=== PATIENT | female | born 1950 | race American Indian/Alaskan Native ===

== ENCOUNTER 2017-03-23 15:06 | Inpatient (IN) | payer MEDICARE ==
[2017-03-23] MEDS ORDERED: DULCOLAX PR PRN (15:36)
[2017-03-23] MEDS ORDERED: TYLENOL PO PRN (15:36)
[2017-03-23] MEDS ORDERED: MILK OF MAGNESIA PO PRN (15:36)
[2017-03-23] MEDS ORDERED: HEPARIN/ 0.45% NACL-25,000 UNIT/500 ML 25,000 UNIT/500 ML BAG IV SCH (18:00)
[2017-03-23 18:10] LABS: Basophils % (Auto) 0.4 % (0.0-1.8); Eosinophils % (Auto) 1.8 % (0.0-4.3); Hematocrit 38.7 % (30.3-42.9); Hemoglobin 12.6 gm/dl (10.1-14.3); Mean Corpuscular HGB Conc 33 % (30-34); Mean Corpuscular Hemoglobin 29 pg (28-32); Mean Corpuscular Volume 91 fl (79-97); Platelet Count 245 K/mm3 (140-440); Red Blood Count 4.27 M/mm3 (3.65-5.03); Red Cell Distribution Width 14.3 % (13.2-15.2)
[2017-03-23 18:20] LABS: INR 1.78 (0.87-1.13)
[2017-03-23 18:23] LABS: Albumin/Globulin Ratio 1.4 %; Bilirubin,Total 0.5 mg/dL (0.1-1.2); Calcium 9.4 mg/dL (8.4-10.2); Chloride 100.5 mmol/L (98-107); Potassium 3.9 mmol/L (3.6-5.0); Total Protein 6.8 g/dL (6.3-8.2)
--- NOTE | 2017-03-23 19:29 | Cat Scan Report ---
FINAL REPORT EXAM: CT ANGIO CHEST HISTORY: PULMONARY EMBOLISM TECHNIQUE: Enhanced CT of the chest at 2.5 mm axial intervals following a pulmonary embolism protocol. Coronal and sagittal imaging were also obtained. Coronal oblique MIP projections were obtained. Contrast: Intravenous contrast given PRIORS: None. FINDINGS: There is no evidence for pulmonary embolism in the main pulmonary artery, right and left pulmonary arteries or their major distributions. However, CT does not exclude distal pulmonary emboli. Otherwise, the lung parenchyma are expanded and clear with no evidence for parenchymal nodules, infiltrates, congestion, or pleural effusion. There is no evidence for mediastinal, hilar, or axillary adenopathy. Cardiovascular structures are within normal limits. No evidence for ventricular chamber enlargement is seen. Images through the lung bases include the upper abdomen which show no abnormalities of the visualized abdominal viscera. Bony structures demonstrate no focal abnormalities. IMPRESSION: No evidence for pulmonary embolism. Negative CT of the chest.
--- NOTE | 2017-03-23 20:26 | Cat Scan Report ---
FINAL REPORT EXAM: CT ABDOMEN PELVIS W CON HISTORY: Acute femoral embolism TECHNIQUE: Standard enhanced CT of the abdomen and pelvis. Delayed imaging was obtained. Coronal and sagittal reconstruction was also performed. Contrast: Intravenous contrast given. PRIORS: None. FINDINGS: Within the abdomen, the liver, spleen, pancreas, gallbladder, adrenal glands, and right kidney are unremarkable. Focal cortical thinning in the mid and lower pole of the left kidney is noted, likely related to scarring. No evidence for retroperitoneal or pelvic lymphadenopathy is seen. The bowel loops have normal caliber. No soft tissue mass, fluid collection, inflammatory change, or free air is seen within the abdomen or pelvis. The appendix is normal. There is an inferior vena cava filter in place located at the L3 level. There is a minimal amount of low-density within the inferior aspect of the filter (sagittal image 80), likely representing thrombus. There is low-density intraluminal thrombus filling the left common femoral vein. This extends proximally approximately 2 cm into the distal left external iliac vein. However, this does not extend more proximally into the left common iliac vein or the inferior vena cava. In fact, the left common iliac vein is small in size measuring 4 mm in diameter. The left common femoral vein is enlarged measuring 1.6 cm in diameter. There are a number of varices identified in the kennedy hepatis region, peripancreatic region, stomach, and in the subcutaneous fat overlying the lower pelvis in midline. Within the pelvis, the bladder is unremarkable. The uterus has been surgically removed. No evidence for mass or lymphadenopathy is seen in the pelvis. Extensive sigmoid diverticulosis is noted without active diverticulitis. There are few other diverticuli noted in the descending colon as well. Images through the upper abdomen include the lung bases which are expanded and clear. Bony structures show moderate degenerative disc narrowing L4-L5 with a subtle, retrolisthesis, grade 1, of L4 on L5. There is also a subtle, grade 1, anterolisthesis of L3 on L4. Facet joint degenerative changes at L3-L4 are noted bilaterally. IMPRESSION: 1. Thrombus present extending in the distal left external iliac vein through the left femoral vein. The left common iliac vein is small in size. 2. Inferior vena cava filter in place with a small amount of low-density thrombus along the caudal aspect of the filter. 3. Extensive varices identified in multiple locations as mentioned above. 4. Focal cortical scarring in the mid lower left kidney. Is 5. Degenerative disc changes at L4-L5 with spondylolisthesis of L3 on L4 and L4 on L5 as noted. 6. Sigmoid diverticulosis without active diverticulitis
[2017-03-24] MEDS ORDERED: NACL 0.9% 500 ML 500 ML IV SCH (10:00)
[2017-03-24] MEDS ORDERED: HEPARIN/NS 5000 UNIT/500ML(CATH LAB) 1,000 ML IR ONE (14:50)
[2017-03-24] MEDS ORDERED: ANCEF/STERILE WATER 2 GM/20 ML 2 GM/20 ML SYRINGE IV ONE (14:51)
[2017-03-24] MEDS ORDERED: XYLOCAINE 2% INFILTRATI ONE (14:51)
[2017-03-24] MEDS ORDERED: NACL 0.9% 500 ML 0 ML ONE (14:51)
[2017-03-24 15:08] LABS: Basophils % (Auto) 0.6 % (0.0-1.8); Eosinophils % (Auto) 1.5 % (0.0-4.3); Hematocrit 37.2 % (30.3-42.9); Hemoglobin 12.1 gm/dl (10.1-14.3); Mean Corpuscular HGB Conc 33 % (30-34); Mean Corpuscular Hemoglobin 29 pg (28-32); Mean Corpuscular Volume 89 fl (79-97); Platelet Count 241 K/mm3 (140-440); Red Blood Count 4.18 M/mm3 (3.65-5.03); Red Cell Distribution Width 14.4 % (13.2-15.2); White Blood Count 4.4 K/mm3 (4.5-11.0)
[2017-03-24] MEDS ORDERED: MORPHINE IV PRN ×2 (15:11)
--- NOTE | 2017-03-24 15:17 | Operative Report ---
Operative Report Operative Report: EXAM: 1. Ultrasound-guided access of the left popliteal vein 2. Venography of the left lower extremity 3. Selection of the left external iliac vein with venography 4. Inability to cross the right common iliac vein 5. Placement under fluoroscopy of a 106 cm x 12 cm EKOS thrombolytic catheter in the left external iliac vein, left common femoral vein, and left superficial femoral vein. DATE: 03/24/17 COORDINATOR VOLUNTEER SERVICES: MYNOR MARTINEZ MD INDICATION: Symptomatic left lower extremity deep venous thrombosis MEDICATIONS: Please see nursing report for full details. CONTRAST: Please see laborer wrecking and salvaging report for full details PROCEDURE: The risks, benefits, and alternatives were discussed with the patient and her ; written informed consent was obtained. The patient's left popliteal region was prepped and draped in a sterile fashion. Under direct ultrasound guidance, the left popliteal vein was accessed with a 21-gauge micropuncture needle. 0.018 inch wire was passed into the vein. The needle was exchanged for transitional dilator. Wires exchange for 0.035 inch wire. Transitional dilator was exchanged for a 6 Moz[place] sheath. The patient was heparinized. Digital subtraction angiography demonstrated patency of the popliteal vein, and most of the superficial femoral vein. There was occlusive thrombus in the left common femoral vein extending partially into the superficial femoral vein and occlusive thrombus in the left external iliac vein. There is numerous collaterals noted compatible with a acute on chronic occlusion. 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 Multiple wires and catheters were used and the left external iliac vein was selected. Digital subtraction angiography was performed in multiple projections. Despite multiple wires and catheters, I could not cross the left common iliac vein occlusion. I then placed a 106 cm x 12 cm EKOS thrombolytic catheter in the left external iliac vein, left common femoral vein, and left superficial femoral vein. This was primed with 4 mg of TPA. Sheath was heparinized with 2000 units of heparin. The thrombolytic catheter was then sterilely secured. This was done with 2-0 Ethilon and multiple Steri-Strips. The patient was transferred to the ICU in stable condition. FINDINGS: Please see procedure note above IMPRESSION: Successful placement of a left lower extremity venous thrombolytic catheter as described above.
--- NOTE | 2017-03-24 15:17 | Post Operative Note ---
Date of procedure: 03/24/17 Pre-op diagnosis: LLE symptomatic ileofemoral DVT Post-op diagnosis: same Procedure: 1. Ultrasound guided access of the left popliteal vein 2. Venography of the left lower extremity 3. 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 Fluoroscopic guided placement of a 106 cm x 12 cm tPA infusion catheter from the left external iliac vein across the left common femoral vein to the left superficial femoral vein. Anesthesia: local (w/ conscious sedation) Surgeon: MYNOR MARTINEZ Estimated blood loss: minimal Condition: stable Disposition: ICU
[2017-03-24 15:21] LABS: INR 1.34 (0.87-1.13); Partial Thromboplastin Time 32.6 Sec. (24.2-36.6)
[2017-03-24] MEDS: SUBLIMAZE ONE ×2 (15:27→15:34)
[2017-03-24] MEDS: VERSED ONE ×2 (15:27→15:34)
[2017-03-24] MEDS ORDERED: HEPARIN/NS 5000 UNIT/500ML(CATH LAB) 500 ML IR ONE (15:31)
[2017-03-24] MEDS ORDERED: NACL 0.9% 50 ML ONE (15:31)
[2017-03-24] MEDS ORDERED: CATHFLO ONE ×2 (15:33→16:11)
[2017-03-24] MEDS ORDERED: WATER FOR INJ (PF) 10 ML ONE ×2 (15:35→15:44)
[2017-03-24] MEDS: HEPARIN 10,000 UNITS/10 ML ONE ×2 (15:39→16:15)
[2017-03-24] MEDS ORDERED: HEPARIN/ 0.45% NACL-25,000 UNIT/500 ML 25,000 UNIT/500 ML BAG SHEATH SCH (16:00)
[2017-03-24] MEDS ORDERED: NACL 0.9% 1000 ML 1,000 ML SHEATH SCH (16:00)
[2017-03-24] MEDS ORDERED: NACL 0.9% 1000 ML 1,000 ML EKOSCLUMEN SCH (16:00)
[2017-03-24] MEDS ORDERED: CATHFLO 20 MG in NACL 0.9% 500 ML 500 ML EKOSDLUMEN SCH (16:00)
[2017-03-24] MEDS ORDERED: NACL 0.9% 1000 ML 1,000 ML IV SCH (16:00)
[2017-03-24] MEDS ORDERED: NACL 0.9% 1000 ML 1,000 ML ONE (16:22)
[2017-03-24] MEDS ORDERED: HEPARIN/ 0.45% NACL-25,000 UNIT/500 ML 25,000 UNIT/500 ML BAG ONE (16:22)
[2017-03-24 16:41] LABS: Calcium 9.3 mg/dL (8.4-10.2); Chloride 100.2 mmol/L (98-107); Potassium 4.1 mmol/L (3.6-5.0)
[2017-03-24] MEDS ORDERED: MORPHINE ONE (19:59)
--- NOTE | 2017-03-24 19:59 | History and Physical Report ---
History of Present Illness Date of admission: 03/23/17 16:53 Chief complaint: Left leg DVT History of present illness: 66 YO Female with HTN, PVD, LLE DVT consult placed at the request of Dr. Mahoney for medical management. No reports of fever, chills, CP, Palpitations, NVD, Syncope, skin rash or recent ill contacts. Pt taken to labor and employment paralegal for ekos therapy as per primary team. Past History Past Medical History: hypertension Past Surgical History: Other (EKOS) Social history: Family history: hypertension Medications and Allergies Allergies Allergy/AdvReac Type Severity Reaction Status Date / Time chocolate flavor Allergy Unknown Verified 03/24/17 08:58 orange juice Allergy Unknown Verified 03/24/17 08:58 Home Medications Medication Instructions Recorded Confirmed Last Taken Type Hydrochlorothiazide [HCTZ] 25 mg PO QDAY 03/23/17 03/23/17 03/22/17 23:00 History Lisinopril [Zestril] 10 mg PO DAILY 03/23/17 03/25/17 03/22/17 23:00 History 10 mg Rivaroxaban [Xarelto] 15 mg PO BID 03/23/17 03/25/17 03/22/17 23:00 History 15 mg Active Meds: Active Medications Acetaminophen (Tylenol) 650 mg PO Q4H PRN PRN Reason: Pain MILD(1-3)/Fever >100.5/HILL Acetaminophen/Hydrocodone Bitart ([place] 5/325) 2 each PO Q6H PRN PRN Reason: Pain, Moderate (4-6) Bisacodyl (Dulcolax) 10 mg MI QDAY PRN PRN Reason: Constipation unrelieved by MOM Hydrochlorothiazide (Hctz) 25 mg PO QDAY MITA Sodium Chloride (Nacl 0.9% 500 Ml) 500 mls @ 50 mls/hr IV DIRECT MITA Last Admin: 03/24/17 13:05 Dose: 50 mls/hr Alteplase, Recombinant 20 mg/ (Sodium Chloride) 500 mls @ 15 mls/hr EKOSDLUMEN DIRECT MITA Last Admin: 03/24/17 16:45 Dose: 15 mls/hr Heparin Sodium/Sodium Chloride (Heparin/ 0.45% Nacl-25,000 Unit/500 Ml) 25,000 unit in 500 mls @ 10 mls/hr SHEATH DIRECT MITA; 500 UNITS/HR PRN Reason: Protocol Last Admin: 03/24/17 16:56 Dose: 500 units/hr, 10 mls/hr Sodium Chloride (Nacl 0.9% 1000 Ml) 1,000 mls @ 30 mls/hr IV DIRECT MITA Sodium Chloride (Nacl 0.9% 1000 Ml) 1,000 mls @ 35 mls/hr EKOSCLUMEN DIRECT MITA Last Admin: 03/24/17 17:03 Dose: 35 mls/hr Sodium Chloride (Nacl 0.9% 1000 Ml) 1,000 mls @ 30 mls/hr SHEATH DIRECT MITA Lisinopril (Zestril) 10 mg PO QDAY MITA Magnesium Hydroxide (Milk Of Magnesia) 30 ml PO Q4H PRN PRN Reason: Constipation Morphine Sulfate (Morphine) 2 mg IV Q4H PRN PRN Reason: Pain, Moderate (4-6) Morphine Sulfate (Morphine) 4 mg IV Q4H PRN PRN Reason: Pain , Severe (7-10) Ondansetron HCl (Zofran) 4 mg IV Q8H PRN PRN Reason: Nausea Review of Systems Constitutional: no weight loss, no fever Ears, nose, mouth and throat: no ear pain, no ear discharge, no tinnitis, no decreased hearing, no nose pain, no nasal congestion Breasts: no change in shape, no swelling, no mass Cardiovascular: no chest pain, no orthopnea, no palpitations, no rapid/ irregular heart beat Respiratory: no cough, no cough with sputum, no excessive sputum Gastrointestinal: no abdominal pain, no nausea, no vomiting Genitourinary Female: no pelvic pain, no flank pain, no menorrhagia Rectal: no pain, no incontinence, no bleeding Musculoskeletal: no neck stiffness, no neck pain, no shooting arm pain, no arm numbness/tingling Integumentary: no rash, no pruritis, no redness Neurological: no paralysis, no weakness, no parathesias Psychiatric: no anxiety, no memory loss, no change in sleep habits Endocrine: no cold intolerance, no heat intolerance, no polyphagia, no excessive thirst Hematologic/Lymphatic: no easy bruising, no easy bleeding Allergic/Immunologic: no urticaria, no allergic rhinitis, no wheezing Exam - Constitutional Vitals: Temp Pulse Resp BP Pulse Ox 97.8 F 70 20 100/56 97 03/24/17 16:45 03/24/17 19:15 03/24/17 19:15 03/24/17 19:15 03/24/17 19:15 Results - Labs CBC & Chem 7: 03/25/17 01:16 03/25/17 03:36 Labs: Abnormal lab results 03/24/17 03/24/17 03/24/17 Range/Units 04:02 14:44 14:44 WBC 4.4 L (4.5-11.0) K/mm3 [place] % (Auto) 8.5 H (0.0-7.3) % PT 17.3 H (12.2-14.9) Sec. INR 1.34 H (0.87-1.13) Heparin Anti-Xa Level > 2.00 H (0.3-0.7) U.I./ml Assessment and Plan - Patient Problems (1) HTN (hypertension) Current Visit: Yes Status: Acute Plan to address problem: Monitor bp q shift, Pt currently normotensive, continue ICU monitoring. (2) DVT (deep venous thrombosis) Current Visit: Yes Status: Acute Plan to address problem: S/P EKOS therapy, anticoagulation as per primary team (3) PVD (peripheral vascular disease) Current Visit: Yes Status: Acute Plan to address problem: Continue anticoagulation as per primary team, serial physical exam. (4) DVT prophylaxis Current Visit: Yes Status: Acute
[2017-03-24] MEDS ORDERED: NORCO 5/325 ONE (20:02)
[2017-03-24 20:19] LABS: Basophils % (Auto) 0.6 % (0.0-1.8); Eosinophils % (Auto) 1.3 % (0.0-4.3); Hematocrit 37.6 % (30.3-42.9); Hemoglobin 12.5 gm/dl (10.1-14.3); Mean Corpuscular HGB Conc 33 % (30-34); Mean Corpuscular Hemoglobin 29 pg (28-32); Mean Corpuscular Volume 89 fl (79-97); Platelet Count 234 K/mm3 (140-440); Red Blood Count 4.24 M/mm3 (3.65-5.03); Red Cell Distribution Width 14.4 % (13.2-15.2); White Blood Count 5.9 K/mm3 (4.5-11.0)
[2017-03-24] MEDS: NORCO 5/325 PO PRN (22:36)
[2017-03-25 01:43] LABS: Basophils % (Auto) 0.3 % (0.0-1.8); Eosinophils % (Auto) 0.2 % (0.0-4.3); Hematocrit 37.5 % (30.3-42.9); Hemoglobin 12.4 gm/dl (10.1-14.3); Mean Corpuscular HGB Conc 33 % (30-34); Mean Corpuscular Hemoglobin 29 pg (28-32); Mean Corpuscular Volume 89 fl (79-97); Platelet Count 194 K/mm3 (140-440); Red Blood Count 4.23 M/mm3 (3.65-5.03); Red Cell Distribution Width 14.2 % (13.2-15.2); White Blood Count 9.5 K/mm3 (4.5-11.0)
[2017-03-25 04:08] LABS: Calcium 8.9 mg/dL (8.4-10.2); Chloride 101.6 mmol/L (98-107)
[2017-03-25] MEDS: ZOFRAN IV PRN ×2 (04:15→16:00)
--- NOTE | 2017-03-25 07:18 | Vascular Lab Report ---
Left Lower Extremity Venous Duplex Study: Reason for Exam: Pain and swelling of the left lower extremity. Comments on the Right: A limited duplex study was done of the proximal veins of the right lower extremity. All veins visualized are freely compressible without evidence of internal echogenicity. Flow is spontaneous and phasic throughout. No evidence of acute or chronic thrombus is seen in any of the vessels visualized. Comments on the Left: Deep venous thrombus is noted in the femoral and common femoral veins and extending into the external iliac vein. Superficial thromboses noted in the greater saphenous vein. The remaining veins visualized are freely compressible without evidence of internal echogenicity. Spontaneous and phasic flow is absent proximally. Impression: Deep and superficial venous thrombosis in the left lower extremity
--- NOTE | 2017-03-25 08:32 | Consultation ---
History of Present Illness - Reason for Consult Consult date: 03/25/17 Post-Op management Requesting physician: MYNOR MARTINEZ - History of Present Illness 66 y/o female with chronic LLE DVT, now with symptoms of hypoperfusion, admitted to ICU after EKOS catheter placement. Currently back in cath lab tech now to have EKOS removed. Overnight no issues. Past History Past Medical History: hypertension, other (unable to obtain) Past Surgical History: Other (EKOS on yesterday 03/24/17) Social history: other (unable to obtain) Family history: other (unable to obtain) Medications and Allergies Allergies Allergy/AdvReac Type Severity Reaction Status Date / Time chocolate flavor Allergy Unknown Verified 03/24/17 08:58 orange juice Allergy Unknown Verified 03/24/17 08:58 Home Medications Medication Instructions Recorded Confirmed Last Taken Type Hydrochlorothiazide [HCTZ] 25 mg PO QDAY 03/23/17 03/23/17 03/22/17 23:00 History Lisinopril [Zestril] 10 mg PO DAILY 03/23/17 03/25/17 03/22/17 23:00 History 10 mg Rivaroxaban [Xarelto] 15 mg PO BID 03/23/17 03/25/17 03/22/17 23:00 History 15 mg Active Meds: Active Medications Acetaminophen (Tylenol) 650 mg PO Q4H PRN PRN Reason: Pain MILD(1-3)/Fever >100.5/HILL Acetaminophen/Hydrocodone Bitart ([place] 5/325) 2 each PO Q6H PRN PRN Reason: Pain, Moderate (4-6) Last Admin: 03/24/17 22:36 Dose: 2 each Bisacodyl (Dulcolax) [address] QDAY PRN PRN Reason: Constipation unrelieved by MOM Hydrochlorothiazide (Hctz) 25 mg PO QDAY MITA Sodium Chloride (Nacl 0.9% 500 Ml) 500 mls @ 50 mls/hr IV DIRECT MITA Last Admin: 03/24/17 13:05 Dose: 50 mls/hr Alteplase, Recombinant 20 mg/ (Sodium Chloride) 500 mls @ 15 mls/hr EKOSDLUMEN DIRECT MITA Last Admin: 03/24/17 16:45 Dose: 15 mls/hr Heparin Sodium/Sodium Chloride (Heparin/ 0.45% Nacl-25,000 Unit/500 Ml) 25,000 unit in 500 mls @ 10 mls/hr SHEATH DIRECT MITA; 500 UNITS/HR PRN Reason: Protocol Last Admin: 03/24/17 16:56 Dose: 500 units/hr, 10 mls/hr Sodium Chloride (Nacl 0.9% 1000 Ml) 1,000 mls @ 30 mls/hr IV DIRECT MITA Sodium Chloride (Nacl 0.9% 1000 Ml) 1,000 mls @ 35 mls/hr EKOSCLUMEN DIRECT MITA Last Admin: 03/24/17 17:03 Dose: 35 mls/hr Sodium Chloride (Nacl 0.9% 1000 Ml) 1,000 mls @ 30 mls/hr SHEATH DIRECT MITA Lisinopril (Zestril) 10 mg PO QDAY MITA Magnesium Hydroxide (Milk Of Magnesia) 30 ml PO Q4H PRN PRN Reason: Constipation Morphine Sulfate (Morphine) 2 mg IV Q4H PRN PRN Reason: Pain, Moderate (4-6) Morphine Sulfate (Morphine) 4 mg IV Q4H PRN PRN Reason: Pain , Severe (7-10) Ondansetron HCl (Zofran) 4 mg IV Q8H PRN PRN Reason: Nausea Last Admin: 03/25/17 04:15 Dose: 4 mg Review of Systems All systems: negative Exam - Constitutional Vitals: Temp Pulse Resp BP Pulse Ox 99.0 F 61 14 110/63 98 03/25/17 03:43 03/25/17 08:00 03/25/17 08:00 03/25/17 08:00 03/25/17 08:00 Results - Labs CBC & Chem 7: 03/25/17 01:16 03/25/17 03:36 Labs: Abnormal lab results 03/24/17 03/24/17 03/24/17 Range/Units 14:44 14:44 20:12 WBC 4.4 L (4.5-11.0) K/mm3 Lymph % (Auto) (13.4-35.0) % [place] % (Auto) 8.5 H (0.0-7.3) % Lymph # (1.2-5.4) K/mm3 Seg Neutrophils % (40.0-70.0) % Seg Neutrophils # (1.8-7.7) K/mm3 PT 17.3 H (12.2-14.9) Sec. INR 1.34 H (0.87-1.13) Heparin Anti-Xa Level 1.60 H (0.3-0.7) U.I./ml BUN (7-17) mg/dL 03/25/17 03/25/17 03/25/17 Range/Units 01:16 01:16 03:36 WBC (4.5-11.0) K/mm3 Lymph % (Auto) 7.4 L (13.4-35.0) % [place] % (Auto) (0.0-7.3) % Lymph # 0.7 L (1.2-5.4) K/mm3 Seg Neutrophils % 87.0 H (40.0-70.0) % Seg Neutrophils # 8.2 H (1.8-7.7) K/mm3 PT (12.2-14.9) Sec. INR (0.87-1.13) Heparin Anti-Xa Level 1.64 H (0.3-0.7) U.I./ml BUN 20 H (7-17) mg/dL Assessment and Plan 66 y/o female with symptomatic left lower ext DVT with claudication, status post EKOS 1. Cather removal today 2. Anticoagulation 3. Once monitored post removal, transfer to floor.
[2017-03-25] MEDS ORDERED: HEPARIN/NS 5000 UNIT/500ML(CATH LAB) 1,000 ML IR ONE (08:44)
[2017-03-25] MEDS: HEPARIN 10,000 UNITS/10 ML ONE ×4 (08:45→10:56)
[2017-03-25] MEDS ORDERED: XYLOCAINE 2% INFILTRATI ONE (08:45)
[2017-03-25] MEDS: SUBLIMAZE ONE ×4 (09:30→10:10)
[2017-03-25] MEDS: VERSED ONE ×2 (09:30→09:37)
[2017-03-25] MEDS ORDERED: HEPARIN/NS 5000 UNIT/500ML(CATH LAB) 500 ML IR ONE (09:31)
[2017-03-25] MEDS ORDERED: XYLOCAINE 1%/ EPI 1:100,000 INFILTRATI ONE (09:34)
[2017-03-25] MEDS ORDERED: VERSED IV ONE (09:37)
[2017-03-25] MEDS ORDERED: VERSED ONE ×2 (09:38→10:27)
[2017-03-25] MEDS ORDERED: SUBLIMAZE ONE (10:28)
[2017-03-25] MEDS ORDERED: ELIQUIS ONE (11:16)
--- NOTE | 2017-03-25 11:26 | Operative Report ---
Operative Report Operative Report: EXAM: 1. Thrombolytic cather removal of the left lower extremity venous system 2. Venography of the left lower extremity 3. Selection of the IVC with venography of the IVC 4. 8 [place] AngioJet Mechanical thrombectomy of the left common femoral vein and left external iliac vein and part of the left common iliac vein. 5. Angioplasty of the left common iliac vein, left external iliac vein, and left common femoral vein with a 5 mm angioplasty balloon. 6. Angioplasty of the left common iliac vein, external iliac vein, and common femoral vein with an 8 mm angioplasty balloon. 7. Intravascular ultrasound of the IVC, left common iliac vein, external iliac vein, and common femoral vein 8. Stenting of the left common iliac vein with an 18 mm x 90 mm wall stent 9. Stenting of the left common femoral vein with a 16 mm x 90 mm wall stent 10. Angioplasty of the left common iliac vein, left external iliac vein, and left common femoral vein with a 16 mm x 40 mm angioplasty balloon 10. Stenting of the left external iliac vein with a 14 mm x 80 mm protg 11. Angioplasty left external iliac vein with a 12 mm x 40 mm angioplasty balloon 12. 6 Fr house cleaner mechanical thrombectomy of the trapeze IVC filter thrombus DATE: 03/25/17 LEAD CUSTODIAN: MYNOR MARTINEZ MD INDICATION: Symptomatic left lower extremity deep venous thrombus MEDICATIONS: Please see nursing report for full details. CONTRAST: Please see quality assurance qa lab technician report for full details PROCEDURE: Risks, benefits, and alternatives were discussed with the patient and her ; written informed consent was obtained. The left lower extremity thrombolytic catheter in the popliteal fossa was prepped and draped in a sterile fashion. The patient was heparinized. Fluoroscopic evaluation of the existing thrombolytic catheter was performed which demonstrated that it was retracted maybe 1 or 2 cm from his prior position but otherwise unchanged. The thrombolytic catheter was still across the left common femoral vein and superficial femoral vein. The catheter was removed over 0.035 inch wire. Digital subtraction angiography performed through the sheath demonstrated patency of the left popliteal vein, and superficial femoral vein. Most of the thrombus within the common femoral vein had been removed, but there is still some residual thrombus. The thrombus in the left external iliac vein was still present and occlusive. 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 There are numerous collaterals visualized. Using a variety of wires and catheters, I was able to cross the left common iliac vein occlusion with a Glidewire advantage and a Navicross . I was able to pass the catheter into the IVC. Digital subtraction angiography was performed confirming position in the IVC. The IVC filter was noted. The IVC filter was partially fractured with strut that was extraluminal. There was some debris, possibly part of a fibrin sheath, on the lowest portion of the IVC filter. Glidewire advantage was passed centrally. 8 [place] AngioJet was advanced over the wire and used to perform mechanical thrombectomy of the left common femoral vein, external iliac vein, and part of the common iliac vein. Intermittent angiography was performed demonstrating clearance of thrombus. There is only minimal thrombus remaining. Angioplasty was then performed of the left common iliac vein, external iliac vein, and left common femoral vein with a 5 mm angioplasty balloon. Digital subtraction angiography demonstrated a small channel connecting with the IVC without extravasation or pseudoaneurysm. Angioplasty was then performed with an 8 mm angioplasty balloon. Digital suppression angiography demonstrated a small to moderate channel connecting the IVC with the right common femoral vein without extravasation or pseudoaneurysm. I then advanced a intravascular ultrasound catheter into the vein and identified that the common iliac vein was severely narrowed, the external iliac vein was also severely narrowed, and the common femoral vein was severely norrowed at its superior portion. These narrowings were multifocal and noncontiguous. May Thurner physiology was confirmed with intravascular ultrasound. The lower IVC was patent on intravascular ultrasound. I did not evaluate the trapeze filter with intravascular ultrasound, however on prior CT, there was a filling defect at the lower portion of the IVC filter. After proper appropriately marking the screen, a 18 mm x 90 mm wall stent endoprosthesis was deployed in the left common iliac vein, with the superior portion extending into the IVC. 16 mm x 90 mm wall stent endoprosthesis was deployed in the left common femoral vein. 16 mm angioplasty was performed and stented section, but there was residual stenosis in the left external iliac vein which did not properly expand. 14 mm x 80 mm protg stent was deployed across the left external iliac vein. 12 mm angioplasty balloon was used to post -dilate the protg stented section. Digital subtraction angiography was performed demonstrating prompt flow through the left superficial femoral vein, common femoral vein, external iliac vein, common iliac vein, and into the IVC. However, there was still debris at the lower portion of the IVC filter. 6 Hungarian house cleaner was advanced into the lower portion of the IVC and used to perform mechanical thrombectomy in the lower portion of the IVC. Digital subtraction angiography was repeated demonstrated clearance of most of the debris at the lower portion of the IVC filter. After achieving this good technical results, the procedure was completed. The patient was re-heparinized and provided 10 mg of Eliquis on the table. All wires and catheters were removed. The left sheath was removed. Pressure was held until hemostasis was achieved. Dermabond applied. Pressure dressing applied. The patient tolerated the procedure with no immediate postprocedural complication. FINDINGS: Please see procedure note above IMPRESSION: 1. Successful stenting of the left common iliac vein, external iliac vein, and common femoral vein. 2. Successful thrombotic catheter removal. 3. Successful thrombectomy of the IVC, left common iliac vein, left external iliac vein, and left common femoral vein 4. Successful intravascular ultrasound of the IVC, left common iliac vein, left external iliac vein, and left common femoral vein
[2017-03-25] MEDS: ZESTRIL PO SCH (12:43)
[2017-03-25] MEDS: HCTZ PO SCH (12:43)
[2017-03-25] MEDS: NACL 0.9% 1000 ML 1,000 ML IV SCH ×2 (12:44→19:20)
--- NOTE | 2017-03-25 13:01 | Event Note ---
Date: 03/25/17 Successful procedure. The patient will need to be on Eliquis 10 mg PO BID x 7 days, then Eliquis 5 mg PO BID for life given multiple prior DVTS. Can remove pressure dressing from left knee tomorrow. Can get up and walk in 6 hrs.
[2017-03-25 14:04] LABS: Basophils % (Auto) 0.3 % (0.0-1.8); Eosinophils % (Auto) 0.6 % (0.0-4.3); Hemoglobin 11.9 gm/dl (10.1-14.3); Mean Corpuscular HGB Conc 32 % (30-34); Mean Corpuscular Hemoglobin 29 pg (28-32); Mean Corpuscular Volume 90 fl (79-97); Platelet Count 203 K/mm3 (140-440); Red Blood Count 4.11 M/mm3 (3.65-5.03); Red Cell Distribution Width 14.4 % (13.2-15.2); White Blood Count 7.4 K/mm3 (4.5-11.0)
--- NOTE | 2017-03-25 18:04 | Progress Note ---
Assessment and Plan Assessment and plan: 66-year-old -[place] female was admitted for left lower extremity DVT, s /p EKOS thrombolytic catheter on the LLE veins We have been consulted for the management of hypertension Hypertension - Patient is on HCTZ and lisinopril, blood pressure well controlled - Continue current regimen Left lower extremity DVT - s/p EKOS thrombolytic catheter on the LLE veins - On Eliquis - management per primary Disposition - Per primary History Interval history: Patient was seen and evaluated at the bedside, patient has minimal pain from the left lower extremity. Hospitalist Physical - Physical exam Narrative exam: Not in cardiopulmonary distress. The patient appeared well nourished and normally developed. Vital signs as documented. Head exam is unremarkable. No scleral icterus . Neck is without jugular venous distension, thyromegaly, or carotid bruits. Lungs are clear to auscultation. Cardiac exam reveals regular rate and Rhythm. First and second heart sounds normal. No murmurs, rubs or gallops. Abdominal exam reveals normal bowel sounds, no masses, no organomegaly and no aortic enlargement. Extremities pressure dressing on the left lower extremity. 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 No focal weakness. - Constitutional Vitals: Temp Pulse Resp BP Pulse Ox 98.7 F 64 15 140/74 98 03/25/17 16:00 03/25/17 17:10 03/25/17 17:10 03/25/17 17:10 03/25/17 17:10 Results - Labs CBC & Chem 7: 03/25/17 13:37 03/26/17 04:01 Labs: Laboratory Last Values WBC 7.4 K/mm3 (4.5-11.0) 03/25/17 13:37 RBC 4.11 M/mm3 (3.65-5.03) 03/25/17 13:37 Hgb 11.9 gm/dl (10.1-14.3) 03/25/17 13:37 Hct 37.0 % (30.3-42.9) 03/25/17 13:37 MCV 90 fl (79-97) 03/25/17 13:37 MCH 29 pg (28-32) 03/25/17 13:37 MCHC 32 % (30-34) 03/25/17 13:37 RDW 14.4 % (13.2-15.2) 03/25/17 13:37 Plt Count 203 K/mm3 (140-440) 03/25/17 13:37 Lymph % (Auto) 20.8 % (13.4-35.0) 03/25/17 13:37 [place] % (Auto) 8.1 % (0.0-7.3) H 03/25/17 13:37 Eos % (Auto) 0.6 % (0.0-4.3) 03/25/17 13:37 Baso % (Auto) 0.3 % (0.0-1.8) 03/25/17 13:37 Lymph # 1.5 K/mm3 (1.2-5.4) 03/25/17 13:37 [place] # 0.6 K/mm3 (0.0-0.8) 03/25/17 13:37 Eos # 0.0 K/mm3 (0.0-0.4) 03/25/17 13:37 Baso # 0.0 K/mm3 (0.0-0.1) 03/25/17 13:37 Seg Neutrophils % 70.2 % (40.0-70.0) H 03/25/17 13:37 Seg Neutrophils # 5.2 K/mm3 (1.8-7.7) 03/25/17 13:37 PT 17.3 Sec. (12.2-14.9) H 03/24/17 14:44 INR 1.34 (0.87-1.13) H 03/24/17 14:44 APTT 32.6 Sec. (24.2-36.6) 03/24/17 14:44 Fibrinogen 213 mg/dl (211-480) 03/25/17 01:16 Heparin Anti-Xa Level 1.64 U.I./ml (0.3-0.7) H 03/25/17 01:16 Sodium 143 mmol/L (137-145) 03/25/17 03:36 Potassium 4.0 mmol/L (3.6-5.0) 03/25/17 03:36 Chloride 101.6 mmol/L (98-107) 03/25/17 03:36 Carbon Dioxide 23 mmol/L (22-30) 03/25/17 03:36 Anion Gap 22 mmol/L 03/25/17 03:36 BUN 20 mg/dL (7-17) H 03/25/17 03:36 Creatinine 1.1 mg/dL (0.7-1.2) 03/25/17 03:36 Estimated GFR 60 ml/min 03/25/17 03:36 BUN/Creatinine Ratio 18 % 03/25/17 03:36 Glucose 94 mg/dL (65-100) 03/25/17 03:36 Calcium 8.9 mg/dL (8.4-10.2) 03/25/17 03:36 Total Bilirubin 0.50 mg/dL (0.1-1.2) 03/23/17 17:27 AST 14 units/L (5-40) 03/23/17 17:27 ALT 8 units/L (7-56) 03/23/17 17:27 Alkaline Phosphatase 65 units/L (35-129) 03/23/17 17:27 Total Protein 6.8 g/dL (6.3-8.2) 03/23/17 17:27 Albumin 4.0 g/dL (3.9-5) 03/23/17 17:27 Albumin/Globulin Ratio 1.4 % 03/23/17 17:27 Blood Type A POSITIVE 03/24/17 14:44 Antibody Screen Negative 03/24/17 14:44
[2017-03-25] MEDS: ELIQUIS PO SCH (21:42)
[2017-03-26] MEDS: NORCO 5/325 PO PRN (02:16)
[2017-03-26] MEDS: NACL 0.9% 1000 ML 1,000 ML IV SCH ×2 (02:21→09:23)
[2017-03-26 04:58] LABS: Calcium 7.7 mg/dL (8.4-10.2); Potassium 3.4 mmol/L (3.6-5.0)
[2017-03-26] MEDS: ELIQUIS PO SCH (09:23)
[2017-03-26] MEDS: HCTZ PO SCH (09:26)
[2017-03-26] MEDS: ZESTRIL PO SCH (09:26)
[2017-03-26] MEDS ORDERED: K-DUR PO ONE (09:32)
--- NOTE | 2017-03-26 09:33 | Progress Note ---
Assessment and Plan Assessment and plan: 66-year-old -[place] female was admitted for left lower extremity DVT, s /p EKOS thrombolytic catheter on the LLE veins We have been consulted for the management of hypertension Hypertension - Patient is on HCTZ and lisinopril, blood pressure well controlled - Continue current regimen Left lower extremity DVT - s/p EKOS thrombolytic catheter on the LLE veins - On Eliquis - management per primary Disposition - Per primary History Interval history: Patient was seen and evaluated at the bedside, patient has minimal pain from the left lower extremity. Hospitalist Physical - Physical exam Narrative exam: Not in cardiopulmonary distress. The patient appeared well nourished and normally developed. Vital signs as documented. Head exam is unremarkable. No scleral icterus . Neck is without jugular venous distension, thyromegaly, or carotid bruits. Lungs are clear to auscultation. Cardiac exam reveals regular rate and Rhythm. First and second heart sounds normal. No murmurs, rubs or gallops. Abdominal exam reveals normal bowel sounds, no masses, no organomegaly and no aortic enlargement. Extremities pressure dressing on the left lower extremity. 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 No focal weakness. - Constitutional Vitals: Temp Pulse Resp BP Pulse Ox 98.3 F 70 18 102/54 100 03/26/17 08:56 03/26/17 09:26 03/26/17 08:56 03/26/17 09:26 03/26/17 08:56 Results - Labs CBC & Chem 7: 03/25/17 13:37 03/26/17 04:01 Labs: Laboratory Last Values WBC 7.4 K/mm3 (4.5-11.0) 03/25/17 13:37 RBC 4.11 M/mm3 (3.65-5.03) 03/25/17 13:37 Hgb 11.9 gm/dl (10.1-14.3) 03/25/17 13:37 Hct 37.0 % (30.3-42.9) 03/25/17 13:37 MCV 90 fl (79-97) 03/25/17 13:37 MCH 29 pg (28-32) 03/25/17 13:37 MCHC 32 % (30-34) 03/25/17 13:37 RDW 14.4 % (13.2-15.2) 03/25/17 13:37 Plt Count 203 K/mm3 (140-440) 03/25/17 13:37 Lymph % (Auto) 20.8 % (13.4-35.0) 03/25/17 13:37 [place] % (Auto) 8.1 % (0.0-7.3) H 03/25/17 13:37 Eos % (Auto) 0.6 % (0.0-4.3) 03/25/17 13:37 Baso % (Auto) 0.3 % (0.0-1.8) 03/25/17 13:37 Lymph # 1.5 K/mm3 (1.2-5.4) 03/25/17 13:37 [place] # 0.6 K/mm3 (0.0-0.8) 03/25/17 13:37 Eos # 0.0 K/mm3 (0.0-0.4) 03/25/17 13:37 Baso # 0.0 K/mm3 (0.0-0.1) 03/25/17 13:37 Seg Neutrophils % 70.2 % (40.0-70.0) H 03/25/17 13:37 Seg Neutrophils # 5.2 K/mm3 (1.8-7.7) 03/25/17 13:37 PT 17.3 Sec. (12.2-14.9) H 03/24/17 14:44 INR 1.34 (0.87-1.13) H 03/24/17 14:44 APTT 32.6 Sec. (24.2-36.6) 03/24/17 14:44 Fibrinogen 213 mg/dl (211-480) 03/25/17 01:16 Heparin Anti-Xa Level 1.64 U.I./ml (0.3-0.7) H 03/25/17 01:16 Sodium 144 mmol/L (137-145) 03/26/17 04:01 Potassium 3.4 mmol/L (3.6-5.0) L 03/26/17 04:01 Chloride 109.0 mmol/L (98-107) H 03/26/17 04:01 Carbon Dioxide 22 mmol/L (22-30) 03/26/17 04:01 Anion Gap 16 mmol/L 03/26/17 04:01 BUN 16 mg/dL (7-17) 03/26/17 04:01 Creatinine 1.1 mg/dL (0.7-1.2) 03/26/17 04:01 Estimated GFR 60 ml/min 03/26/17 04:01 BUN/Creatinine Ratio 15 % 03/26/17 04:01 Glucose 99 mg/dL (65-100) 03/26/17 04:01 Calcium 7.7 mg/dL (8.4-10.2) L 03/26/17 04:01 Total Bilirubin 0.50 mg/dL (0.1-1.2) 03/23/17 17:27 AST 14 units/L (5-40) 03/23/17 17:27 ALT 8 units/L (7-56) 03/23/17 17:27 Alkaline Phosphatase 65 units/L (35-129) 03/23/17 17:27 Total Protein 6.8 g/dL (6.3-8.2) 03/23/17 17:27 Albumin 4.0 g/dL (3.9-5) 03/23/17 17:27 Albumin/Globulin Ratio 1.4 % 03/23/17 17:27 Blood Type A POSITIVE 03/24/17 14:44 Antibody Screen Negative 03/24/17 14:44 Mild hypokalemia
[2017-03-26 12:42] VITALS: BP 102/57
--- NOTE | 2017-03-26 14:21 | Discharge Summary ---
Providers - Providers Date of Admission: 03/23/17 16:53 Date of discharge: 03/26/17 Attending physician: MYNOR MARTINEZ 03/23/17 15:36 Consult to Physician [CONS] Routine Consulting Provider: ADRIANO SINGH Reason For Exam: medical management Place consult to:: ADRIANO SINGH Notified:: ADRIANO SINGH 03/24/17 18:45 Consult to Physician [CONS] Routine Consulting Provider: VADIM WILKERSON Reason For Exam: ICU ADMIT FOR EKOS Place consult to:: DR. WILKERSON Notified:: YES Phone number called:: [phone] Was contact made?: Yes If yes, spoke with:: ANSWERING SERVICE Time called:: 18:45 Primary care physician: BIB ELIAS Hospitalization Reason for admission: Acute LLE AVT Condition: Good Procedures: Operative Report Operative Report: EXAM: 1. Ultrasound-guided access of the left popliteal vein 2. Venography of the left lower extremity 3. Selection of the left external iliac vein with venography 4. Inability to cross the right common iliac vein 5. Placement under fluoroscopy of a 106 cm x 12 cm EKOS thrombolytic catheter in the left external iliac vein, left common femoral vein, and left superficial femoral vein. DATE: 03/24/17 RETAIL REPRESENTATIVE: MYNOR MARTINEZ MD INDICATION: Symptomatic left lower extremity deep venous thrombosis MEDICATIONS: Please see nursing report for full details. CONTRAST: Please see laboratory engineer report for full details PROCEDURE: The risks, benefits, and alternatives were discussed with the patient and her ; written informed consent was obtained. The patient's left popliteal region was prepped and draped in a sterile fashion. Under direct ultrasound guidance, the left popliteal vein was accessed with a 21-gauge micropuncture needle. 0.018 inch wire was passed into the vein. The needle was exchanged for transitional dilator. Wires exchange for 0.035 inch wire. Transitional dilator was exchanged for a 6 Palestinian sheath. The patient was heparinized. Digital subtraction angiography demonstrated patency of the popliteal vein, and most of the superficial femoral vein. There was occlusive thrombus in the left common femoral vein extending partially into the superficial femoral vein and occlusive thrombus in the left external iliac vein. There is numerous collaterals noted compatible with a acute on chronic occlusion. 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 Multiple wires and catheters were used and the left external iliac vein was selected. Digital subtraction angiography was performed in multiple projections. Despite multiple wires and catheters, I could not cross the left common iliac vein occlusion. I then placed a 106 cm x 12 cm EKOS thrombolytic catheter in the left external iliac vein, left common femoral vein, and left superficial femoral vein. This was primed with 4 mg of TPA. Sheath was heparinized with 2000 units of heparin. The thrombolytic catheter was then sterilely secured. This was done with 2-0 Ethilon and multiple Steri-Strips. The patient was transferred to the ICU in stable condition. FINDINGS: Please see procedure note above IMPRESSION: Successful placement of a left lower extremity venous thrombolytic catheter as described above. Operative Report Operative Report: EXAM: 1. Thrombolytic cather removal of the left lower extremity venous system 2. Venography of the left lower extremity 3. Selection of the IVC with venography of the IVC 4. 8 Palestinian AngioJet Mechanical thrombectomy of the left common femoral vein and left external iliac vein and part of the left common iliac vein. 5. Angioplasty of the left common iliac vein, left external iliac vein, and left common femoral vein with a 5 mm angioplasty balloon. 6. Angioplasty of the left common iliac vein, external iliac vein, and common femoral vein with an 8 mm angioplasty balloon. 7. Intravascular ultrasound of the IVC, left common iliac vein, external iliac vein, and common femoral vein 8. Stenting of the left common iliac vein with an 18 mm x 90 mm wall stent 9. Stenting of the left common femoral vein with a 16 mm x 90 mm wall stent 10. Angioplasty of the left common iliac vein, left external iliac vein, and left common femoral vein with a 16 mm x 40 mm angioplasty balloon 10. Stenting of the left external iliac vein with a 14 mm x 80 mm protg 11. Angioplasty left external iliac vein with a 12 mm x 40 mm angioplasty balloon 12. 6 Fr rack cleaner mechanical thrombectomy of the trapeze IVC filter thrombus DATE: 03/25/17 RETAIL REPRESENTATIVE: MYNOR MARTINEZ MD INDICATION: Symptomatic left lower extremity deep venous thrombus MEDICATIONS: Please see nursing report for full details. CONTRAST: Please see laboratory engineer report for full details PROCEDURE: Risks, benefits, and alternatives were discussed with the patient and her ; written informed consent was obtained. The left lower extremity thrombolytic catheter in the popliteal fossa was prepped and draped in a sterile fashion. The patient was heparinized. Fluoroscopic evaluation of the existing thrombolytic catheter was performed which demonstrated that it was retracted maybe 1 or 2 cm from his prior position but otherwise unchanged. The thrombolytic catheter was still across the left common femoral vein and superficial femoral vein. The catheter was removed over 0.035 inch wire. Digital subtraction angiography performed through the sheath demonstrated patency of the left popliteal vein, and superficial femoral vein. Most of the thrombus within the common femoral vein had been removed, but there is still some residual thrombus. The thrombus in the left external iliac vein was still present and occlusive. 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 There are numerous collaterals visualized. Using a variety of wires and catheters, I was able to cross the left common iliac vein occlusion with a Glidewire advantage and a Navicross . I was able to pass the catheter into the IVC. Digital subtraction angiography was performed confirming position in the IVC. The IVC filter was noted. The IVC filter was partially fractured with strut that was extraluminal. There was some debris, possibly part of a fibrin sheath, on the lowest portion of the IVC filter. Glidewire advantage was passed centrally. 8 Palestinian AngioJet was advanced over the wire and used to perform mechanical thrombectomy of the left common femoral vein, external iliac vein, and part of the common iliac vein. Intermittent angiography was performed demonstrating clearance of thrombus. There is only minimal thrombus remaining. Angioplasty was then performed of the left common iliac vein, external iliac vein, and left common femoral vein with a 5 mm angioplasty balloon. Digital subtraction angiography demonstrated a small channel connecting with the IVC without extravasation or pseudoaneurysm. Angioplasty was then performed with an 8 mm angioplasty balloon. Digital suppression angiography demonstrated a small to moderate channel connecting the IVC with the right common femoral vein without extravasation or pseudoaneurysm. I then advanced a intravascular ultrasound catheter into the vein and identified that the common iliac vein was severely narrowed, the external iliac vein was also severely narrowed, and the common femoral vein was severely norrowed at its superior portion. These narrowings were multifocal and noncontiguous. May Thurner physiology was confirmed with intravascular ultrasound. The lower IVC was patent on intravascular ultrasound. I did not evaluate the trapeze filter with intravascular ultrasound, however on prior CT, there was a filling defect at the lower portion of the IVC filter. After proper appropriately marking the screen, a 18 mm x 90 mm wall stent endoprosthesis was deployed in the left common iliac vein, with the superior portion extending into the IVC. 16 mm x 90 mm wall stent endoprosthesis was deployed in the left common femoral vein. 16 mm angioplasty was performed and stented section, but there was residual stenosis in the left external iliac vein which did not properly expand. 14 mm x 80 mm protg stent was deployed across the left external iliac vein. 12 mm angioplasty balloon was used to post -dilate the protg stented section. Digital subtraction angiography was performed demonstrating prompt flow through the left superficial femoral vein, common femoral vein, external iliac vein, common iliac vein, and into the IVC. However, there was still debris at the lower portion of the IVC filter. 6 Palestinian rack cleaner was advanced into the lower portion of the IVC and used to perform mechanical thrombectomy in the lower portion of the IVC. Digital subtraction angiography was repeated demonstrated clearance of most of the debris at the lower portion of the IVC filter. After achieving this good technical results, the procedure was completed. The patient was re-heparinized and provided 10 mg of Eliquis on the table. All wires and catheters were removed. The left sheath was removed. Pressure was held until hemostasis was achieved. Dermabond applied. Pressure dressing applied. The patient tolerated the procedure with no immediate postprocedural complication. FINDINGS: Please see procedure note above IMPRESSION: 1. Successful stenting of the left common iliac vein, external iliac vein, and common femoral vein. 2. Successful thrombotic catheter removal. 3. Successful thrombectomy of the IVC, left common iliac vein, left external iliac vein, and left common femoral vein 4. Successful intravascular ultrasound of the IVC, left common iliac vein, left external iliac vein, and left common femoral vein Hospital course: Patient presented to the office with complaints of acute worsening of her left leg swelling and shortness of breath. She was recently diagnosed with an acute on chronic LLE DVT. An acute PE was ruled out. She was admitted and started on a heparin gtt and taken the next day for placement of a thrombolysis catheter. The catheter was removed the next day and she had further intervention which included mechanical thrombectomy, angioplasty and stenting of her left iliac venous system. She states she has some soreness but feels much better today and is clinically ready for discharge home on oral anticoagulation. Disposition: DC-01 TO HOME OR SELFCARE Core Measure Documentation - Palliative Care Palliative Care/ Comfort Measures: Not Applicable - Core Measures Any of the following diagnoses?: DVT/PE - VTE Discharge Requirements Deep Vein Thrombosis/Pulmonary Embolism Present on Admission: Yes Has pt received <5 days of overlap therapy or INR<2.0: No Anticoagulant overlap therapy prescribed at discharge: Yes Exam - Constitutional Vitals: Temp Pulse Resp BP Pulse Ox 98.6 F 72 18 102/57 98 03/26/17 11:38 03/26/17 11:39 03/26/17 11:38 03/26/17 11:38 03/26/17 11:39 General appearance: Present: no acute distress - Neck Neck: Present: supple - Respiratory Respiratory effort: normal - Cardiovascular Rhythm: regular - Extremities Extremities: no ischemia, pulses intact Extremity abnormal: edema (significantly improved from prior to procedure), other (access site left lef without hemtoma) Peripheral Pulses: within normal limits - Abdominal General gastrointestinal: Present: soft, non-tender Plan Activity: no restrictions Wound: open to air, keep clean and dry Follow up with: MYNOR MARTINEZ MD [Staff Physician] - 14 Days Prescriptions: Apixaban [Eliquis] 5 mg PO BID #60 tablet HYDROcodone/APAP 7.5-325 [[place] 7.5/325] 1 each PO Q6HR PRN #40 tablet PRN Reason: Pain
== END 2017-03-26 16:03 | disposition home or self-care (01) | DRG 270 ==
LOC: UNDOADMIN 15:06 → 3A 15:06 → 2B-ACE 16:53 → CC1 03-24 19:58 → 4A 03-25 18:19
PROVIDERS: ADMIT Radiology Diagnostic Radiology; ATTEND Radiology Diagnostic Radiology
PROC: 3E04317 Introduction of Other Thrombolytic into Central Vein, Percutaneous Approach (ICD-10-PCS; principal; 2017-03-24)
PROC: B51VZZA Fluoroscopy of Other Veins, Guidance (ICD-10-PCS; 2017-03-24)
PROC: 06HG33Z Insertion of Infusion Device into Left External Iliac Vein, Percutaneous Approach (ICD-10-PCS; 2017-03-24)
PROC: B51G1ZA Fluoroscopy of Left Pelvic (Iliac) Veins using Low Osmolar Contrast, Guidance (ICD-10-PCS; 2017-03-24)
PROC: 06HN33Z Insertion of Infusion Device into Left Femoral Vein, Percutaneous Approach (ICD-10-PCS; 2017-03-24)
PROC: B51C1ZA Fluoroscopy of Left Lower Extremity Veins using Low Osmolar Contrast, Guidance (ICD-10-PCS; 2017-03-24)
PROC: 06CN3ZZ Extirpation of Matter from Left Femoral Vein, Percutaneous Approach (ICD-10-PCS; 2017-03-25)
PROC: 06CG3ZZ Extirpation of Matter from Left External Iliac Vein, Percutaneous Approach (ICD-10-PCS; 2017-03-25)
PROC: 06CD3ZZ Extirpation of Matter from Left Common Iliac Vein, Percutaneous Approach (ICD-10-PCS; 2017-03-25)
PROC: 067D3DZ Dilation of Left Common Iliac Vein with Intraluminal Device, Percutaneous Approach (ICD-10-PCS; 2017-03-25)
PROC: 067G3DZ Dilation of Left External Iliac Vein with Intraluminal Device, Percutaneous Approach (ICD-10-PCS; 2017-03-25)
PROC: 067N3DZ Dilation of Left Femoral Vein with Intraluminal Device, Percutaneous Approach (ICD-10-PCS; 2017-03-25)
PROC: 06PY33Z Removal of Infusion Device from Lower Vein, Percutaneous Approach (ICD-10-PCS; 2017-03-25)
PROC: 06C03ZZ Extirpation of Matter from Inferior Vena Cava, Percutaneous Approach (ICD-10-PCS; 2017-03-25)
DX: I82.412 Acute embolism and thrombosis of left femoral vein (principal); I26.99 Other pulmonary embolism without acute cor pulmonale; I82.432 Acute embolism and thrombosis of left popliteal vein; I82.422 Acute embolism and thrombosis of left iliac vein; I10 Essential (primary) hypertension; I73.9 Peripheral vascular disease, unspecified; Z91.018 Allergy to other foods
CPT/HCPCS: 36415; 37187; 37212; 37214; 37238; 37239; 37252; 71275; 74177; 75820; 80048; 80053; 85025; 85384; 85520; 85610; 85730; 86850; 86900; 86901; 96365; 96366; 96368; C1725; C1753; C1757; C1769; C1876; C1887; C1894; J0690; J1644; J2250; J2270; J2405; J2997; J3010; J7030; J7040; Q9967